=== PATIENT | female | born 1980 | race Caucasian/White ===

== ENCOUNTER 2022-06-15 14:23 | Emergency (ER) | payer OTHER ==
[~2022-06-15] VITALS: Ht 177.8 cm; Wt 136.1 kg
[2022-06-15] MEDS ORDERED: HYDROCODON-ACE1 EA11 PO (15:34)
== END 2022-06-15 16:36 | disposition home or self-care (01) ==
LOC: ED 14:23
DX: S83.91XA Sprain of unspecified site of right knee, initial encounter (principal); W22.8XXA Striking against or struck by other objects, initial encounter; E11.9 Type 2 diabetes mellitus without complications
CPT/HCPCS: 73560; 99283-25; A9270